=== PATIENT | male | born 1995 | race Caucasian/White ===

== ENCOUNTER 2020-06-25 22:54 | Emergency (ER) | payer SELFPAY ==
[~2020-06-25] VITALS: Ht 180.3 cm; Wt 72.7 kg
[2020-06-25 23:01] VITALS: BP 148/71
== END 2020-06-25 23:59 | disposition left against medical advice (07) ==
LOC: EMS 22:54
DX: S61.411A Laceration without foreign body of right hand, initial encounter (principal); S00.81XA Abrasion of other part of head, initial encounter; F10.129 Alcohol abuse with intoxication, unspecified; W22.8XXA Striking against or struck by other objects, initial encounter; Y93.89 Activity, other specified; Y92.89 Other specified places as the place of occurrence of the external cause; Y99.8 Other external cause status; Y90.9 Presence of alcohol in blood, level not specified
CPT/HCPCS: 99283; Z7502